=== PATIENT | female | born 1970 | race Caucasian/White ===

== ENCOUNTER 2021-06-05 17:32 | Emergency (ER) | payer OTHER ==
--- NOTE | 2021-06-05 18:14 | EDM.PDOC ---
ED HPI GENERAL MEDICAL PROBLEM - General Chief Complaint: General Stated Complaint: COUGH,HEADACHE Time Seen by Provider: 06/05/21 18:05 Source of Information: Reports: Patient History Limitations: Reports: No Limitations - History of Present Illness INITIAL COMMENTS - FREE TEXT/NARRATIVE: 51-year-old female who is fully vaccinated for Covid, otherwise healthy other than hypertension, was sitting next to 2 people several days ago that she found out are now Covid positive. She has a slight headache and a slight cough, no fever, she is with family appear in a group of people that summer not vaccinated so she just wants to be tested for reassurance. No nausea or vomiting. Onset: Gradual Duration: Hour(s): (Symptoms for 12 hours) Associated Symptoms: Reports: Cough, Other (Slight headache). Denies: Fever/Chills, Shortness of Breath - Related Data Allergies Allergy/AdvReac Type Severity Reaction Status Date / Time Penicillins Allergy Rash Verified 06/05/21 17:50 Home Meds: Home Meds Metoprolol Succinate 25 mg PO DAILY 06/05/21 [History] Past Medical History HEENT History: Reports: Otitis Media Cardiovascular History: Reports: Hypertension [employer]OR History: Reports: Musculoskeletal History: Reports: Fracture - Infectious Disease History Infectious Disease History: Reports: Chicken Pox - Past Surgical History HEENT Surgical History: Reports: Myringotomy w Tube(s), Tonsillectomy GI Surgical History: Reports: Hernia, Inguinal, Hernia Repair/Other Social & Family History - Tobacco Use Tobacco Use Status *Q: Never Tobacco User - Caffeine Use Caffeine Use: Reports: Energy Drinks, Soda - Recreational Drug Use Recreational Drug Use: No ED ROS GENERAL - Review of Systems Review Of Systems: See Below Constitutional: Denies: Fever, Chills HEENT: Denies: Throat Pain Respiratory: Reports: Cough. Denies: Shortness of Breath Cardiovascular: Denies: Chest Pain GI/Abdominal: Denies: Nausea, Vomiting Skin: Denies: Rash Neurological: Reports: Headache ED EXAM, GENERAL - Physical Exam Exam: See Below Exam Limited By: No Limitations General Appearance: Alert, No Apparent Distress Eye Exam: Bilateral Eye: Normal Inspection Ears: Normal TMs (Scarring from previous surgeries but no acute findings) Head: Atraumatic Respiratory/Chest: No Respiratory Distress, Lungs Clear Cardiovascular: Regular Rate, Rhythm Neurological: Alert, Oriented Psychiatric: Normal Affect, Normal Mood Skin Exam: Warm, Dry Course - Vital Signs Last Recorded V/S: Last Vital Signs Temp 97.4 F 06/05/21 18:00 Pulse 62 06/05/21 18:22 Resp 14 06/05/21 18:00 BP 179/106 H 06/05/21 18:22 Pulse Ox 96 06/05/21 18:22 - Orders/Labs/Meds Labs: Laboratory Tests 06/05/21 Range/Units 18:22 SARS CoV-2 RNA Rapid CHRISTAL Negative - Re-Assessments/Exams Free Text/Narrative Re-Assessment/Exam: 06/05/21 18:14 A rapid Covid was obtained. Departure - Departure Time of Disposition: 18:50 Disposition: Home, Self-Care 01 Clinical Impression: Viral URI - Discharge Information Instructions: Viral Respiratory Infection, [id number] Referrals: PCP,None [Primary Care Provider] - Forms: ED Department Discharge Care Plan Goals: Return anytime if worsening such as difficulty breathing, otherwise enjoy the weekend and continue activity and diet as tolerated. In the next few weeks you may want to monitor your blood pressure a little closer and avoid extra salt intake. Sepsis Event Note (ED) - Evaluation Sepsis Screening Result: No Definite Risk - Focused Exam Vital Signs: Vital Signs Temp Pulse Resp BP Pulse Ox 06/05/21 18:22 62 179/106 H 96 06/05/21 18:00 97.4 F 57 L 14 207/97 H 97 06/05/21 17:48 97.4 F 57 L 14 207/97 H 97
== END 2021-06-05 18:51 | disposition home or self-care (01) ==
LOC: JP.ED 17:32
DX: J06.9 Acute upper respiratory infection, unspecified (principal); I10 Essential (primary) hypertension; Z88.0 Allergy status to penicillin; Z20.822 Contact with and (suspected) exposure to COVID-19
CPT/HCPCS: 99283; U0002